=== PATIENT | male | born 1945 | race Caucasian/White ===

== ENCOUNTER → 2020-06-19 | Outpatient (CLI) | payer MEDICARE ==
[~2020-06-19] MED LIST: AMLODIPINE BESYL5 MG PO; ANDROGEL75 G1 TP; ASPIR 8181 MG PO; ATENOLOL-CHLOR1 EAC1 PO; BUTALB-ACETAMI1 EACH PO; CARDIAMIN MULT1 EACH PO; CELEBREX200 MG PO; CITALOPRAM HBR20 MG PO; DOXAZOSIN MESYLA2 MG PO; DOXAZOSIN MESYLA4 MG PO; FISH OIL 1,2001 EACH PO; GABAPENTIN300 MG PO; HYDROCODON-ACE1 EAC9 PO; INDOMETHACIN75 MG PO; NEXIUM PO; NEXIUM40 MG PO; NORTRIPTYLINE H10 MG PO; PANTOPRAZOLE SO20 MG PO; POTASSIUM CHLOR8 MEQ PO; PROMETHAZINE HC25 M1 PO; SIMVASTATIN40 MG PO; SUCRALFATE1 GM PO; TESTOSTERO200 MG/1 M INJ; TRAZODONE HCL100 MG PO; TYLENOL EXTRA500 MG PO
== END ==
LOC: US 07:36
PROVIDERS: ATTEND Urology
DX: N20.0 Calculus of kidney (principal); N28.1 Cyst of kidney, acquired
CPT/HCPCS: 76770; 76857

== ENCOUNTER → 2020-07-16 | Outpatient (CLI) | payer MEDICARE ==
[~2020-07-16] MED LIST changes: +IOPAMIDOL 370 MG/ML 200 ML INFUS..BTL INJ ONE; +SODIUM CHLORIDE 0.9% 250ML 0 ML ONE; +SODIUM CHLORIDE 0.9% 500ML 500 ML ONE; +SODIUM CHLORIDE 0.9% 50ML 50 ML ONE
[2020-07-16 08:04] LABS: CREATININE, SERUM 1.2 mg/dL (0.72-1.25)
== END ==
LOC: CT 06:56
PROVIDERS: ATTEND Urology
DX: N28.1 Cyst of kidney, acquired (principal); R91.8 Other nonspecific abnormal finding of lung field; N40.0 Benign prostatic hyperplasia without lower urinary tract symptoms; K57.90 Diverticulosis of intestine, part unspecified, without perforation or abscess without bleeding
CPT/HCPCS: 36415; 74178; 82565; 84520; 96360; J7040; Q9967; J7050

== ENCOUNTER → 2024-12-27 | Outpatient (REF) | payer MEDICARE ==
[~2024-12-27] MED LIST changes: -IOPAMIDOL 370 MG/ML 200 ML INFUS..BTL INJ ONE; -SODIUM CHLORIDE 0.9% 250ML 0 ML ONE; -SODIUM CHLORIDE 0.9% 500ML 500 ML ONE; -SODIUM CHLORIDE 0.9% 50ML 50 ML ONE
== END ==
LOC: US 09:31
PROVIDERS: ATTEND Urology
DX: N28.1 Cyst of kidney, acquired (principal)
CPT/HCPCS: 76770; 76857